=== PATIENT | female | born 1990 | race Caucasian/White ===

== ENCOUNTER 2016-08-10 15:37 | Emergency (ER) | payer OTHER ==
[~2016-08-10] VITALS: Ht 170.2 cm; Wt 87.0 kg
[~2016-08-10 15:37] MED LIST: BACTRIM DS1 TAB OR; TAM75CAP PO; TORADOL PO; ZOFRAN ODT4 MG SL; ZOFRAN4 MG/TAB PO
[2016-08-10] MEDS ORDERED: DEBROX6.5 % OT (16:01)
[2016-08-10 16:06] VITALS: BP 126/78
== END 2016-08-10 16:14 | disposition home or self-care (01) | DRG 156 ==
LOC: ED 15:37
DX: H61.23 Impacted cerumen, bilateral (principal); H53.453 Other localized visual field defect, bilateral

== ENCOUNTER 2016-11-03 17:36 | Emergency (ER) | payer OTHER ==
[~2016-11-03] VITALS: Ht 167.6 cm; Wt 98.0 kg
[~2016-11-03 17:36] MED LIST changes: +DEBROX6.5 % OT
[2016-11-03 18:18] LABS: HEMATOCRIT 42.2 % (37.0-47.0); IMMATURE GRANULOCYTES 0.3 % (0.0-1.0); MEAN CELL VOLUME 91.3 fL CALC (80.0-100.0); MEAN CORPUSCULAR HGB 30.3 pG CALC (26.0-32.0); MEAN CORPUSCULAR HGB CONC 33.2 g/L CALC (32.0-36.0); NEUT# 6.47 thou/uL (2.00-7.15); RED BLOOD COUNT 4.62 mill/uL (4.20-5.60); RED CELL DISTRI WIDTH 12.4 % (11.5-15.5)
[2016-11-03 18:22] LABS: URINE BILIRUBIN - DIPSTICK NEGATIVE (NEGATIVE); URINE BLOOD DIPSTICK NEGATIVE (NEGATIVE); URINE CLARITY CLEAR; URINE COLOR YELLOW; URINE GLUCOSE - DIPSTICK NEGATIVE (NEGATIVE); URINE KETONE NEGATIVE (NEGATIVE); URINE LEUK ESTERASE NEGATIVE (NEGATIVE); URINE NITRITE - DIPSTICK NEGATIVE (Negative); URINE PROTEIN - DIPSTICK NEGATIVE (NEG-TRACE); URINE UROBILINOGEN - DIPSTICK 0.2 E.U./dL (0.2)
[2016-11-03 18:31] LABS: ALBUMIN 4.1 g/dL (3.2-5.0); ALKALINE PHOSPHATASE 65 u/l (38-126); AMYLASE 50 u/l (30-110); ANION GAP 13 (6-22 (CALC)); BILIRUBIN, TOTAL 0.3 mg/dL (0.0-1.4); BUN 11 mg/dL (7-17); BUN/CREATININE RATIO 21 (12-20 (CALC)); CALCIUM 9.2 mg/dL (8.4-10.2); CARBON DIOXIDE 23 mmol/l (22-30); CHLORIDE 104 mmol/l (95-108); CREATININE 0.5 mg/dL (0.5-1.0); GFR > 60 ML/MIN (>=60 (CALC)); GFR FOR AFR.AMER. > 60 ML/MIN (>=60 (CALC)); GLUCOSE 73 mg/dL (65-105); LIPASE 87 u/l (23-300); POTASSIUM 3.9 mmol/l (3.5-5.1); SGOT/AST 21 u/l (14-36); SGPT/ALT 19 u/l (9-52); SODIUM 137 mmol/l (137-146); TOTAL PROTEIN 7.9 g/dL (6.3-8.2)
[2016-11-03 20:12] VITALS: BP 91/70
== END 2016-11-03 20:00 | disposition home or self-care (01) | DRG 781 ==
LOC: ED 17:36
PROVIDERS: Emergency Medicine
DX: O26.891 Other specified pregnancy related conditions, first trimester (principal); E03.9 Hypothyroidism, unspecified; R10.32 Left lower quadrant pain; O99.281 Endocrine, nutritional and metabolic diseases complicating pregnancy, first trimester; Z3A.13 13 weeks gestation of pregnancy

== ENCOUNTER 2016-12-20 15:53 | Emergency (ER) | payer OTHER ==
[~2016-12-20] VITALS: Ht 167.6 cm; Wt 99.0 kg
[2016-12-20] MEDS ORDERED: PRENATA3 PO (16:00)
[2016-12-20 16:57] LABS: HEMOGLOBIN 11.5 g/dl (12.0-16.0); IMMATURE GRANULOCYTES 0.3 % (0.0-1.0); MEAN CELL VOLUME 90.4 fL CALC (80.0-100.0); MEAN CORPUSCULAR HGB 30.6 pG CALC (26.0-32.0); MEAN CORPUSCULAR HGB CONC 33.8 g/L CALC (32.0-36.0); NEUT# 7.78 thou/uL (2.00-7.15); RED BLOOD COUNT 3.76 mill/uL (4.20-5.60); RED CELL DISTRI WIDTH 12.6 % (11.5-15.5); URINE BILIRUBIN - DIPSTICK NEGATIVE (NEGATIVE); URINE BLOOD DIPSTICK TRACE-INTACT (NEGATIVE); URINE CLARITY TURBID; URINE COLOR YELLOW; URINE GLUCOSE - DIPSTICK NEGATIVE (NEGATIVE); URINE KETONE NEGATIVE (NEGATIVE); URINE LEUK ESTERASE TRACE (NEGATIVE); URINE NITRITE - DIPSTICK NEGATIVE (Negative); URINE PH 6.5 (4.5-8.0); URINE PROTEIN - DIPSTICK TRACE mg/dL (NEG-TRACE); URINE SPECIFIC GRAVITY 1.025; URINE UROBILINOGEN - DIPSTICK 0.2 E.U./dL (0.2)
[2016-12-20 17:11] LABS: ALBUMIN 3.4 g/dL (3.2-5.0); ALKALINE PHOSPHATASE 50 u/l (38-126); ANION GAP 14 (6-22 (CALC)); BILIRUBIN, TOTAL 0.4 mg/dL (0.0-1.4); BUN 10 mg/dL (7-17); BUN/CREATININE RATIO 19 (12-20 (CALC)); CALCIUM 8.8 mg/dL (8.4-10.2); CARBON DIOXIDE 20 mmol/l (22-30); CHLORIDE 107 mmol/l (95-108); CREATININE 0.5 mg/dL (0.5-1.0); GFR > 60 ML/MIN (>=60 (CALC)); GFR FOR AFR.AMER. > 60 ML/MIN (>=60 (CALC)); GLUCOSE 84 mg/dL (65-105); POTASSIUM 4.1 mmol/l (3.5-5.1); SGOT/AST 21 u/l (14-36); SGPT/ALT 22 u/l (9-52); SODIUM 137 mmol/l (137-146); TOTAL PROTEIN 6.5 g/dL (6.3-8.2)
[2016-12-20] MEDS ORDERED: ZOFRAN ODT4 MG PO (17:14)
[2016-12-20] MEDS ORDERED: ANTIVERT PO (17:14)
[2016-12-20 17:25] VITALS: BP 97/58
== END 2016-12-20 18:10 | disposition home or self-care (01) | DRG 781 ==
LOC: ED 15:53
PROVIDERS: Emergency Medicine
DX: O26.892 Other specified pregnancy related conditions, second trimester (principal); E03.9 Hypothyroidism, unspecified; R42 Dizziness and giddiness; O99.282 Endocrine, nutritional and metabolic diseases complicating pregnancy, second trimester; Z3A.21 21 weeks gestation of pregnancy

== ENCOUNTER 2020-05-02 08:22 | Emergency (ER) | payer SELFPAY ==
[~2020-05-02] VITALS: Ht 170.2 cm; Wt 110.0 kg
[~2020-05-02 08:22] MED LIST changes: +ANTIVERT PO; +PRENATA3 PO; +ZOFRAN ODT4 MG PO
[2020-05-02 12:04] VITALS: BP 113/62
== END 2020-05-02 12:00 | disposition home or self-care (01) | DRG 563 ==
LOC: ED 08:22
PROC: 0RSJXZZ Reposition Right Shoulder Joint, External Approach (ICD-10-PCS; principal; 2020-05-02)
DX: S43.014A Anterior dislocation of right humerus, initial encounter (principal); W19.XXXA Unspecified fall, initial encounter

== ENCOUNTER 2021-05-04 14:48 | Emergency (ER) | payer SELFPAY ==
[~2021-05-04] VITALS: Ht 170.2 cm; Wt 95.0 kg
[2021-05-04 15:34] LABS: URINE BILIRUBIN - DIPSTICK NEGATIVE (NEGATIVE); URINE BLOOD DIPSTICK LARGE (NEGATIVE); URINE COLOR YELLOW; URINE GLUCOSE - DIPSTICK NEGATIVE (NEGATIVE); URINE KETONE NEGATIVE (NEGATIVE); URINE LEUK ESTERASE TRACE (NEGATIVE); URINE PROTEIN - DIPSTICK 30 mg/dL (NEG-TRACE); URINE UROBILINOGEN - DIPSTICK 0.2 E.U./dL (0.2)
[2021-05-04 15:36] LABS: URINE NITRITE - DIPSTICK NEGATIVE (Negative)
[2021-05-04 15:45] LABS: URINE BACTERIA MODERATE hpf; URINE RBC >100 RBC/hpf (0-5); URINE SQUAMOUS EPITHELIAL CELL MODERATE EPI/hpf (0-FEW)
[2021-05-04] MEDS ORDERED: DOXYCYCLINE100 MG PO (16:19)
[2021-05-04] MEDS ORDERED: PYRIDIUM200 MG PO (16:19)
[2021-05-04 17:55] VITALS: BP 126/79
== END 2021-05-04 18:00 | disposition home or self-care (01) | DRG 696 ==
LOC: ED 14:48
PROVIDERS: Emergency Medicine
DX: R30.0 Dysuria (principal); Z20.2 Contact with and (suspected) exposure to infections with a predominantly sexual mode of transmission

== ENCOUNTER 2021-10-07 18:38 | Emergency (ER) | payer SELFPAY ==
[~2021-10-07] VITALS: Ht 170.2 cm; Wt 100.0 kg
[~2021-10-07 18:38] MED LIST changes: +DOXYCYCLINE100 MG PO; +PYRIDIUM200 MG PO
[2021-10-07 18:59] VITALS: BP 100/70
[2021-10-07 19:00] VITALS: BP 125/74
[2021-10-07 19:57] LABS: IMMATURE GRANULOCYTES 0.1 % (0.0-5.0); MEAN CELL VOLUME 93.7 fL CALC (80.0-100.0); MEAN CORPUSCULAR HGB 30.2 pG CALC (26.0-32.0); MEAN CORPUSCULAR HGB CONC 32.2 g/dL CAL (32.0-36.0); NEUT# 5.87 thou/uL (2.00-7.15); RED BLOOD COUNT 4.57 mill/uL (4.20-5.60); RED CELL DISTRI WIDTH 12.5 % (11.5-15.5)
[2021-10-07 20:00] LABS: HEMATOCRIT 42.8 % (37.0-47.0); HEMOGLOBIN 13.8 g/dl (12.0-16.0); URINE BILIRUBIN - DIPSTICK NEGATIVE (NEGATIVE); URINE BLOOD DIPSTICK TRACE-INTACT (NEGATIVE); URINE COLOR YELLOW; URINE GLUCOSE - DIPSTICK NEGATIVE (NEGATIVE); URINE KETONE 15 mg/dL (NEGATIVE); URINE LEUK ESTERASE NEGATIVE (NEGATIVE); URINE PROTEIN - DIPSTICK NEGATIVE (NEG-TRACE)
[2021-10-07 20:05] LABS: URINE NITRITE - DIPSTICK NEGATIVE (Negative)
[2021-10-07 20:16] LABS: ALKALINE PHOSPHATASE 72 u/l (38-126); ANION GAP 14 (6-22 (CALC)); BILIRUBIN, TOTAL 0.5 mg/dL (0.0-1.4); BUN 12 mg/dL (7-17); BUN/CREATININE RATIO 18 (12-20 (CALC)); CARBON DIOXIDE 21 mmol/l (22-30); CHLORIDE 104 mmol/l (95-108); CREATININE 0.6 mg/dL (0.5-1.0); GFR > 60 ML/MIN (>=60 (CALC)); GFR FOR AFR.AMER. > 60 ML/MIN (>=60 (CALC)); LIPASE 54 u/l (23-300); POTASSIUM 4.1 mmol/l (3.5-5.1); SGOT/AST 21 u/l (14-36); SODIUM 135 mmol/l (137-146); TOTAL PROTEIN 7.7 g/dL (6.3-8.2)
[2021-10-07 20:17] LABS: ALBUMIN 4.4 g/dL (3.2-5.0)
[2021-10-07 21:23] VITALS: BP 100/70
== END 2021-10-07 21:25 | disposition home or self-care (01) | DRG 833 ==
LOC: ED 18:38
PROVIDERS: Internal Medicine
DX: O99.891 Other specified diseases and conditions complicating pregnancy (principal); M54.42 Lumbago with sciatica, left side; M54.41 Lumbago with sciatica, right side; Z3A.01 Less than 8 weeks gestation of pregnancy

== ENCOUNTER 2023-02-14 17:34 | Emergency (ER) | payer OTHER ==
[2023-02-14] VITALS (7 sets, daily range): BP systolic 96–113; BP diastolic 63–73
[~2023-02-14] VITALS: Ht 167.6 cm; Wt 86.0 kg
[2023-02-14 19:13] LABS: BASO% 0.1 % (0-3); EOS% 1.2 % (0-8); HEMATOCRIT 40.7 % (37.0-47.0); HEMOGLOBIN 13.2 g/dl (12.0-16.0); IMMATURE GRANULOCYTES 0.2 % (0.0-5.0); LYMPH% 26.5 % (15-41); MEAN CELL VOLUME 94.4 fL CALC (80.0-100.0); MEAN CORPUSCULAR HGB 30.6 pG CALC (26.0-32.0); MEAN CORPUSCULAR HGB CONC 32.4 g/dL CAL (32.0-36.0); MONO% 6.9 % (2-13); NEUT# 6.98 thou/uL (2.00-7.15); NEUT% 65.1 % (42-76); RED BLOOD COUNT 4.31 mill/uL (4.20-5.60); RED CELL DISTRI WIDTH 12.2 % (11.5-15.5)
[2023-02-14 19:29] LABS: ALBUMIN 4.3 g/dL (3.2-5.0); ALKALINE PHOSPHATASE 66 u/l (38-126); ANION GAP 10 (6-22 (CALC)); BILIRUBIN, TOTAL 0.4 mg/dL (0.02-1.3); BUN 14 mg/dL (7-17); BUN/CREATININE RATIO 21 (12-20 (CALC)); CHLORIDE 105 mmol/l (95-108); CREATININE 0.7 mg/dL (0.5-1.0); GFR FOR AFR.AMER. > 60 ML/MIN (>=60 (CALC)); GFR OTHER RACES > 60 ML/MIN (>=60 (CALC)); POTASSIUM 3.7 mmol/l (3.5-5.1); SGOT/AST 26 u/l (14-36); SODIUM 138 mmol/l (137-146); TOTAL PROTEIN 7.6 g/dL (6.3-8.2)
[2023-02-14 19:35] LABS: CARBON DIOXIDE 27 mmol/l (22-30)
== END 2023-02-14 19:55 | disposition home or self-care (01) | DRG 312 ==
LOC: ED 17:34
PROVIDERS: Family Medicine
DX: R55 Syncope and collapse (principal)